=== PATIENT | male | born 1945 | race Caucasian/White ===

== ENCOUNTER 2024-06-12 14:33 | Emergency (ER) | payer BC ==
[~2024-06-12] VITALS: Ht 182.9 cm; Wt 106.0 kg
[2024-06-12 14:34] VITALS: BP 170/90; TEMP 97.9; O2SAT 99
[2024-06-12] MEDS: LIDOCAINE 2% W/EPINEPHRINE 20ML VIAL **PRES FREE INJ ONE (15:45)
[2024-06-12] MEDS ORDERED: ELIQ2.5T PO (16:05)
[2024-06-12] MEDS ORDERED: BACIOIN5 OP (16:34)
[2024-06-12] MEDS ORDERED: BACI500O8 TOP (16:42)
== END 2024-06-12 17:04 | disposition home or self-care (01) ==
LOC: M ED 14:33
DX: S81.811A Laceration without foreign body, right lower leg, initial encounter (principal); Y92.9 Unspecified place or not applicable; Y93.9 Activity, unspecified; Y99.9 Unspecified external cause status; I48.91 Unspecified atrial fibrillation; E11.9 Type 2 diabetes mellitus without complications; I10 Essential (primary) hypertension; Z79.01 Long term (current) use of anticoagulants; Z79.2 Long term (current) use of antibiotics